=== PATIENT | female | born 1965 | race Caucasian/White ===

== ENCOUNTER 2016-08-09 19:17 | Inpatient (IN) | payer OTHER ==
[~2016-08-09] VITALS: Ht 167.6 cm; Wt 60.7 kg
[2016-08-09 19:20] VITALS: BP 123/78; PULSE 110; RESP 16; TEMP 98.3; O2SAT 98
[2016-08-09] MEDS ORDERED: LORazepam 2 MG/ML VIAL IM ONE (23:15)
[2016-08-09] MEDS ORDERED: HALOPERIDOL LACTATE 5 MG/ML AMP IM ONE (23:15)
[2016-08-09] MEDS ORDERED: diphenhydrAMINE HCL 50 MG/ML VIAL IM ONE (23:15)
[2016-08-09 23:30] LABS: MEAN CORPUSCULAR HGB CONC 36.2 % (32.0-36.0)
--- NOTE | 2016-08-10 00:47 | PD ---
HPI Chief Complaint: Psychiatric Symptoms Time Seen by Provider: 00:44 Travel History International Travel<30 days: No Contact w/Intl Traveler<30days: No Traveled to known affect area: No History of Present Illness HPI 51-year-old white female presents to emergency department and a manic psychotic state. Dr. Dangelo medicated the patient with Haldol 5 mg, Ativan 2 mg, and 50 mg of Benadryl IM. She has written a Johansen act on this patient. The patient here still is somewhat manic. She is hard to follow. She is unable to give any meaningful history at this time. [facility]LY [facility] Past Medical History Narrative Medical Medical record indicates a history of bipolar disorder Bipolar Disorder: Yes Schizophrenia: Yes Tetanus Vaccination: Unknown Influenza Vaccination: No ?: Not Past Surgical History Surgical History: No Previous Surgery Social History Alcohol Use: Yes (OCC) Tobacco Use: Yes (1PPD) Substance Use: No Allergies-Medications (Allergen,Severity, Reaction): Coded Allergies: No Known Allergies (Unverified , 08/09/16) Reported Meds & Prescriptions Reported Meds & Active Scripts Active No Active Prescriptions or Reported Medications Review of Systems ROS Limitations: Psychotic Physical Exam Narrative GENERAL: Well-nourished, well-developed patient. SKIN: Warm and dry. HEAD: Normocephalic and atraumatic. EYES: No scleral icterus. No injection or drainage. ENT: No nasal drainage noted. Mucous membranes pink. Airway patent. NECK: Supple, trachea midline. Moves head freely without obvious discomfort. CARDIOVASCULAR: Regular rate and rhythm without murmurs, gallops, or rubs. RESPIRATORY: Breath sounds equal bilaterally. No accessory muscle use. GASTROINTESTINAL: Abdomen soft, non-tender, nondistended. EXTREMITIES: No cyanosis or edema. BACK: Nontender without obvious deformity. No CVA tenderness. NEURO: Patient is alert and oriented. no sensorimotor deficits. Nonfocal. Normal speech. PSYCH: Patient is acutely psychotic and manic Data Data Last Documented VS Vital Signs Date Time Temp Pulse Resp B/P Pulse Ox O2 Delivery O2 Flow Rate FiO2 08/09/16 21:04 18 08/09/16 19:20 98.3 110 123/78 98 Orders Haloperidol Inj (Haldol Inj) (08/09/16 23:15) Lorazepam Inj (Ativan Inj) (08/09/16 23:15) Diphenhydramine Inj (Benadryl Inj) (08/09/16 23:15) Complete Blood Count With Diff (08/09/16 23:29) Comprehensive Metabolic Panel (08/09/16 23:29) Thyroid Stimulating Hormone (08/09/16 23:29) Psych Screen (08/09/16 23:29) Drug Screen, Random Urine (08/09/16 23:29) Alcohol (Ethanol) (08/09/16 23:29) Salicylates (Aspirin) (08/09/16 23:29) Tylenol (Acetaminophen) (08/09/16 23:29) Diet Regular Basic (08/10/16 Breakfast) MDM Medical Decision Making Medical Screen Exam Complete: Yes Emergency Medical Condition: Yes Medical Record Reviewed: Yes Differential Diagnosis MDM: High Differential diagnoses: Schizophrenia, schizoaffective disorder, bipolar, anxiety, depression, adjustment reaction, mood disorder NOS, ODD, depressive disorder NOS, dementia, dementia with agitation, psychosis NOS, substance induced mood disorder, intermittent explosive disorder, Asperger syndrome, infection,electrolyte abnormality, malingering. Narrative Course Mental health screening discussed with the patient. Psychiatric screen ordered. The patient has been medically cleared. She had been given Haldol 5 mg, Ativan 2 mg, and 50 g of Benadryl IM. This is bipolar-manic phase with psychotic features Diagnosis Primary Impression: bipolar-manic phase with psychotic features Scripts No Active Prescriptions or Reported Meds Condition: Tayo Herrera Aug 10, 2016 00:47
[2016-08-10 02:00] VITALS: BP 125/78; PULSE 91; RESP 17; O2SAT 100
[2016-08-10 06:06] VITALS: BP 126/80; PULSE 90; RESP 19; O2SAT 99
[2016-08-10 06:18] LABS: AUTOMATED NEUTROPHIL # 5.3 TH/MM3 (1.8-7.7); BASOPHIL # 0.1 TH/MM3 (0-0.2); EOSINOPHIL % 0.2 % (0.0-4.0); HEMATOCRIT 37.4 % (35.0-46.0); LYMPH % 30.3 % (9.0-44.0); LYMPHOCYTE # 2.6 TH/MM3 (1.0-4.8); MEAN CELL VOLUME 94.4 FL (80.0-100.0); MEAN CORPUSCULAR HEMOGLOBIN 34.2 PG (27.0-34.0); MONO % 7.3 % (0.0-8.0); NEUT % 61.2 % (16.0-70.0); PLATELET COUNT 233 TH/MM3 (150-450); RED BLOOD COUNT 3.96 MIL/MM3 (4.00-5.30); WHITE BLOOD COUNT 8.7 TH/MM3 (4.0-11.0)
[2016-08-10 06:22] LABS: HEMO FLAGS AUTO DIFF
[2016-08-10 06:36] LABS: AMPHETAMINE, URINE NEG (NEG); BARBITURATES, URINE NEG (NEG); COCAINE, URINE NEG (NEG)
[2016-08-10 06:44] LABS: ALT (GPT) 27 U/L (10-53); ANION GAP 10 MEQ/L (5-15); AST (GOT) 27 U/L (15-37); BICARBONATE 22.1 MEQ/L (21.0-32.0); BLOOD UREA NITROGEN 6 MG/DL (7-18); CHLORIDE 109 MEQ/L (98-107); GLOMERULAR FILTRATION RATE 93 ML/MIN (>89); POTASSIUM 3.7 MEQ/L (3.5-5.1); SODIUM (NA) 141 MEQ/L (136-145)
[2016-08-10 06:54] LABS: ACETAMINOPHEN LESS THAN 2.0 MCG/ML (10.0-30.0); ALKALINE PHOSPHATASE 57 U/L (45-117); TOTAL BILIRUBIN ADULT 0.5 MG/DL (0.2-1.0)
[2016-08-10 07:09] LABS: SCAN/DIFF AUTO DIFF CONFIRMED
--- NOTE | 2016-08-10 07:38 | HHI.HP ---
Provisional Diagnosis Admission Date 08/10/2016 [place] I. 1. Bipolar disorder, currently mixed severe with psychotic features [place] II. Deferred [place] V. GAF is 30 presently Certification of Person's Competence To Provide Express and Informed Consent I have personally examined Dawn Chowdhury , a person being served at [facility] on, Aug 10, 2016 07:38. Express and informed consent means consent voluntarily given in writing, by a competent person, after sufficient explanation and disclosure of the subject matter involved to enable the person to make a knowing and willful decision without any element of force, fraud, deceit, duress, or other form of constraint or coercion. This person is 18 years of age or older, is not now known to be incompetent to consent to treatment with a guardian advocate, and does not have a health care surrogate or proxy currently making medical treatment decisions. I have found this person to be one of the following: [] Competent to provide express and informed consent, as defined above, for voluntary admission to this facility and is competent to provide express and informed consent for treatment. He/she has the consistent capacity to make well reasoned, willful, and knowing decisions concerning his or her medical or mental health treatment. The person fully and consistently understands the purpose of the admission for examination/placement and is fully capable of personally exercising all rights assured [place] [x] Incompetent to provide express and informed consent to voluntary admission, and this is incompetent to provide express and informed consent to treatment. The person must be transferred to involuntary status and a petition for a guardian advocate filed with the Circuit Court. [] Refusing to provide express and informed consent to voluntary admission but is competent to provide express and informed consent for treatment. The person must be discharged or transferred to involuntary status. Form shall be completed within 24 hours of a person's arrival at the receiving facility and filed in the clinical record of each person: 1. Admitted on a voluntary basis 2. Permitted to provide express and informed consent to his/her own treatment 3. Allowed to transfer from involuntary to voluntary status 4. Prior to permitting a person to consent to his or her own treatment after having been previously found incompetent to consent to treatment. History of Present Illness Capacity: Lacks Capacity HPI Ms. Chowdhury is a 51-year-old female of uncertain past psychiatric history who was dropped off by a friend to the ED. The patient was evaluated by the ED provider who placed the patient under the Johansen act. She was transferred to the [facility] where she has been agitated and required ETO medications. Reviewing the electronic medical record, I note this is patient's first visit to [facility]. Patient seen and examined. Chart reviewed. Case discussed with nursing staff and the [facility]. Patient remains quite intrusive and easily agitated on my examination today. Her speech is pressured and she is hyperverbal generally. She give unnecessary detail, such as listing the addresses of places where she has been. Her thought process is disorganized with significant loosening of associations. She says, "my father but his info is extremely top secret and sensitive." She later says that she has been seeing "crap falling from the street into peoples' distance--that doesn't make sense--just [address], how people drive." She denies SI/HI but seems decidedly unreliable to contract for safety in her present state. She denies AVH but appears internally preoccupied. The interview is somewhat limited because of her degree of psychiatric decompensation. Past psychiatric history: Patient is quite guarded on this point. She does endorse a history of psychiatric admissions but denies a history of suicide attempts. She refuses to provide any further details. Family history: Patient reports that possibly her 2 younger sisters have some sort of mental illness. Chemical dependency history: "No, but maybe they should invent some [drugs] for me." Social history: Patient is urgently for [place]. She is but has no children. She does have several pet dogs and cats. 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 She denies any or legal history. She does say there are some guns in the home. Given patient's degree of psychiatric impairment I have endeavored on 3 separate occasions to reach patient's whose numbers listed in the EMR. I have been unable to make contact with him. The patient is unwilling to provide me with any other sources of collateral, and so collateral is presently wanting. Review of Systems ROS Limitations: Uncooperative, Psychotic, Poor Historian Other No reported physical complaints today. Past Psych History Psychological trauma history Unable to obtain from patient. Uncooperative. Violence risk - others (6 mos) Concerned that this is elevated. Patient is easily agitated. Violence risk - self (6 mos) Indeterminate. Substance Abuse History Drugs/Alcohol past 12 months See above Past Family Social History Coded Allergies: No Known Allergies (Unverified , 08/09/16) Past Medical History Patient denies any medical history but is likely an unreliable historian. TSH was slightly elevated. No Active Prescriptions or Reported Meds Family History See above Social History See above Patient's Strengths (min. 2) In a monitored setting. Verbally fluent. Physical Exam Physical examination completed by ED provider. On my examination today, patient is in no acute physical distress. She is well-nourished and well- developed. No motoric abnormalities noted. Steady gait and station. Labs and vital signs reviewed. Vital Signs Vital Signs Date Time Temp Pulse Resp B/P Pulse Ox O2 Delivery O2 Flow Rate FiO2 08/10/16 06:06 90 19 126/80 99 Room Air 08/09/16 19:20 98.3 Lab Results Item Value Date Time Sodium Level 141 MEQ/L 08/10/16 0550 Potassium Level 3.7 MEQ/L 08/10/16 0550 Chloride Level 109 MEQ/L H 08/10/16 0550 Carbon Dioxide Level 22.1 MEQ/L 08/10/16 0550 Blood Urea Nitrogen 6 MG/DL L 08/10/16 0550 Creatinine 0.67 MG/DL 08/10/16 0550 Aspartate Amino Transf (AST/SGOT) 27 U/L 08/10/16 0550 Alanine Aminotransferase (ALT/SGPT) 27 U/L 08/10/16 0550 Alkaline Phosphatase 57 U/L 08/10/16 0550 Thyroid Stimulating Hormone 3rd Gen 5.590 uIU/ML H 08/10/16 0550 White Blood Count 8.7 TH/MM3 08/10/16 0550 Hemoglobin 13.5 GM/DL 08/10/16 0550 Platelet Count 233 TH/MM3 08/10/16 0550 Urine Opiates Screen NEG 08/10/16 0550 Urine Barbiturates Screen NEG 08/10/16 0550 Urine Amphetamines Screen NEG 08/10/16 0550 Urine Benzodiazepines Screen NEG 08/10/16 0550 Urine Cocaine Screen NEG 08/10/16 0550 Urine Cannabinoids Screen NEG 08/10/16 0550 Ethyl Alcohol Level LESS THAN 3 MG/DL 08/10/16 0550 Mental Status Examination Patient is very smartly dressed in a suit, but this is somewhat rumpled, giving her overall a fairly disheveled look. She is awake and alert and knows who she is and that she is in the hospital. Mental status testing is somewhat limited due to lack of cooperation. No motoric abnormalities noted. Speech is pressured and rambling. Language and fund of knowledge are difficult to assess but seem at least average. Mood is fairly dysphoric and affect is restricted and consistent with stated mood. Thought process scattered with significant loosening of associations. Some paranoia is present. Patient seems to describe some sort of visual phenomena to do with the road, but it is unclear. She denies suicidal or homicidal ideation but seems unreliable to contract for safety. Insight and judgment are presently poor. Assessment & Plan Problem List: (1) Bipolar disorder ICD Code: F31.9 Assessment & Plan This is a 51-year-old female of uncertain past psychiatric history as detailed above who was apparently dropped off by friends who reported that she had a history of mental illness and had been off of medications. She was placed under a Johansen act by the ED physician. On my examination today, the form of patient's illness is a severe mixed-manic episode with psychotic features. My suspicion is that she has a bipolar disorder. Her TSH is slightly elevated but I do not suspect that this is contributing to her current presentation to any significant degree. Collateral is presently lacking. Patient requires psychiatric hospitalization at this time for safety, observation and stabilization. Admit inpatient. Involuntary status. I have completed first opinion. Consult for second opinion. Request healthcare surrogate and guardian advocate. Check hemoglobin A1c, lipid panel and repeat thyroid function tests in the morning. We will need a healthcare surrogate to provide consent for psychotropic medications, and I would like to know more about her history before recommending one. For the time being, I will order Ativan as needed for anxiety , Benadryl as needed for sleep and Cogentin as needed for EPS. Vitals every shift. Counselor to see. Disposition planning. Estimated length of stay: 7-9 days, longer if we have to wait for Court next to get a guardian advocate. Discharge Planning Pending psychiatric stabilization Request HC Surrog/Guard Advoc?: Yes Problem Qualifiers (1) Bipolar disorder: Qualified Code: F31.64 - Bipolar disorder, current episode mixed, severe, with psychotic features Chaiffetz,Vincenzo B. MD Aug 10, 2016 07:38
[2016-08-10] MEDS ORDERED: BENZTROPINE MESYLATE 2 MG/2 ML VIAL IM PRN (07:45)
[2016-08-10] MEDS ORDERED: LORazepam 2 MG/ML VIAL IM PRN (07:45)
[2016-08-10] MEDS ORDERED: MAGNESIUM HYDROXIDE SUSP 30 ML CUP PO PRN (07:45)
[2016-08-10] MEDS ORDERED: BENZTROPINE MESYLATE 1 MG TAB PO PRN (07:45)
[2016-08-10] MEDS ORDERED: ALUMINUM/MAGNESIUM/SIMETH 30 ML CUP PO PRN (07:45)
[2016-08-10] MEDS: NICOTINE 21 MG/24 HR PATCH T-DERMAL SCH (09:00)
[2016-08-10] MEDS: REMOVE OLD PATCH T-DERMAL SCH (09:00)
[2016-08-10 10:26] VITALS: BP 121/60; PULSE 92; RESP 18; O2SAT 99
[2016-08-10 15:18] VITALS: BP 121/60; PULSE 92; RESP 18; O2SAT 99
[2016-08-10 16:25] VITALS: BP 141/71; PULSE 94; RESP 16; TEMP 98.3; O2SAT 96
[2016-08-10 20:04] VITALS: BP 120/60; PULSE 88; RESP 16; TEMP 98; O2SAT 97
[2016-08-10] MEDS: LORazepam 1 MG TAB PO PRN (21:45)
[2016-08-10] MEDS: diphenhydrAMINE HCL 50 MG CAP PO PRN (21:45)
[2016-08-11 05:54] VITALS: BP 107/63; PULSE 90; RESP 17; TEMP 97.9; O2SAT 97
--- NOTE | 2016-08-11 08:12 | PD.CONS ---
Provisional Diagnosis Admission Date Aug 10, 2016 at 07:37 [place] I. 1. Bipolar disorder, currently mixed severe with psychotic features [place] II. Deferred [place] V. GAF is 30 presently History of Present Illness Service Psychiatry Consult Requested By Primary Care Physician Non-Staff HPI Ms. Chowdhury is a 51-year-old female of uncertain past psychiatric history who was dropped off by a friend to the ED. The patient was evaluated by the ED provider who placed the patient under the Johansen act. She was transferred to the [facility] where she has been agitated and required ETO medications. Reviewing the electronic medical record, I note this is patient's first visit to [facility]. Patient seen and examined. Chart reviewed. Case discussed with nursing staff and the [facility]. Patient remains quite intrusive and easily agitated on my examination today. Her speech is pressured and she is hyperverbal generally. She give unnecessary detail, such as listing the addresses of places where she has been. Her thought process is disorganized with significant loosening of associations. She says, "my father but his info is extremely top secret and sensitive." She later says that she has been seeing "crap falling from the street into peoples' distance--that doesn't make sense--just [address], how people drive." She denies SI/HI but seems decidedly unreliable to contract for safety in her present state. She denies AVH but appears internally preoccupied. The interview is somewhat limited because of her degree of psychiatric decompensation. Past psychiatric history: Patient is quite guarded on this point. She does endorse a history of psychiatric admissions but denies a history of suicide attempts. She refuses to provide any further details. Family history: Patient reports that possibly her 2 younger sisters have some sort of mental illness. Chemical dependency history: "No, but maybe they should invent some [drugs] for me." Social history: Patient is urgently for [place]. She is but has no children. She does have several pet dogs and cats. 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 She denies any or legal history. She does say there are some guns in the home. Given patient's degree of psychiatric impairment I have endeavored on 3 separate occasions to reach patient's whose numbers listed in the EMR. I have been unable to make contact with him. The patient is unwilling to provide me with any other sources of collateral, and so collateral is presently wanting. 08/11/16 Above note dictated by Dr. Medina noted reviewed and agreed with. Patient is a 51-year-old white female admitted to Dr. Medina service under the Johansen act. Patient seen by me in brush with floor staff, patient is manic with rapid pressured speech intrusiveness showing no insight into her disease somewhat aggressive and profane towards staff. Allergies the patient indicated ETO of Haldol Benadryl and Ativan in the ED to maintain control. Dr. Medina #first opinion petition supporting Johansen act. I agree. Patient meets criteria for involuntary psychiatric hospitalization under the Johansen act. Thus I will cosign second opinion petition supporting Johansen act Past Family Social History Coded Allergies: No Known Allergies (Unverified , 08/09/16) No Active Prescriptions or Reported Meds Current Medications Medications (Trade) Dose Ordered Sig/Prabha Route Start Time Stop Time Status Last Admin (Ativan) 1 mg Q6H PRN PO 08/10/16 07:45 08/10/16 21:45 (Ativan Inj) 1 mg Q6H PRN IM 08/10/16 07:45 (Benadryl) 50 mg HS PRN PO 08/10/16 07:45 08/10/16 21:45 (Tylenol) 650 mg Q4H PRN PO 08/10/16 07:45 (Milk Of Magnesia Liq) 30 ml DAILY PRN PO 08/10/16 07:45 (Mag-Al Plus Susp Liq) 30 ml Q6H PRN PO 08/10/16 07:45 (Habitrol 21 Mg Patch.24 Hr) 1 patch DAILY T-DERMAL 08/10/16 09:00 (Cogentin) 1 mg Q12H PRN PO 08/10/16 07:45 (Cogentin Inj) 1 mg Q12H PRN IM 08/10/16 07:45 Miscellaneous Information 1 DAILY T-DERMAL 08/10/16 09:00 08/10/16 09:00 Patient's Strengths (min. 2) In a monitored setting. Verbally fluent. Physical Exam Vital Signs Vital Signs Date Time Temp Pulse Resp B/P Pulse Ox O2 Delivery O2 Flow Rate FiO2 08/11/16 05:54 97.9 90 17 107/63 97 2/15/17 15:18 Room Air I/O 08/10/16 08/10/16 08/11/16 08:00 16:00 00:00 Intake Total 500 ml Balance 500 ml Mental Status Examination Alert irritable anxious manic then slight white female appears her stated age with intense eye contact somewhat intrusive into my personal space Appearance Somewhat disheveled Speech: Pressured, Rapid, Tangential Orientation: Person, Place, Time, Date, Situation Memory: Unremarkable (confusing) Thought Process: Circumstantial, Tangential Thought Content: Paranoid Hallucination Type: None (denies voices or visions) Attention and Concentration: Easily Distracted Suicidal Ideation: No Previous Suicide Attempts: No Homicidal Ideation: No Previous Homicide Attempts: No Insight: Fair Judgement: Poor Affect: Other (decrease range and intensity) Mood: Angry, Irritable, Manic Motor Activity: Normal gait Assessment & Plan Problem List: (1) Bipolar disorder ICD Code: F31.9 Assessment & Plan Estimated LOS: days Request HC Surrog/Guard Advoc?: Yes Problem Qualifiers (1) Bipolar disorder: Qualified Code: F31.64 - Bipolar disorder, current episode mixed, severe, with psychotic features Matthew Valadez MD Aug 11, 2016 08:12
[2016-08-11] MEDS: REMOVE OLD PATCH T-DERMAL SCH (08:13)
[2016-08-11] MEDS: LORazepam 1 MG TAB PO PRN (08:14)
[2016-08-11] MEDS: ACETAMINOPHEN 325 MG TAB PO PRN (08:16)
[2016-08-11] MEDS: NICOTINE 21 MG/24 HR PATCH T-DERMAL SCH (08:28)
--- NOTE | 2016-08-11 12:12 | HHI.PYPN ---
Subjective Remarks Patient seen and examined. Chart reviewed. Case discussed with nursing staff. On my examination today, patient's speech is pressured and rambling. She continues to perseverate on minutia. Associations are loose. Paranoid ideation present. She is psychomotor agitated and bouncing on the balls of her feet. She does endorse a history of mental illness today but cannot describe this in any detail. Nursing staff was able to reach patient's but patient apparently kept her mental health history private, although he knew she had taken perphenazine in the past. Review of Systems ROS Limitations: Psychotic, Poor Historian Other No somatic complaints today Objective Alert: Yes [place]: Person, Place Mood: Anxious, Other (dysphoric) Affect: Restricted Memory Intact: Comment (Not formally assessed) Hallucinations: Other (Int stim) Delusions: Yes Delusion Type: Paranoid Suicidal: Ideation (No SI but unreliable to contract for safety) Homicidal: Ideation (no HI) Insight/Judgement Poor Remarks Loosening of associations present. Speech rambling and pressured. No abnormal motor movements noted but the patient is somewhat psychomotor agitated as I said. Labs Labs reviewed. Vitals/IOs Vital Signs Date Time Temp Pulse Resp B/P Pulse Ox O2 Delivery O2 Flow Rate FiO2 08/11/16 05:54 97.9 90 17 107/63 97 08/10/16 15:18 Room Air Intake and Output 08/10/16 08/10/16 08/11/16 08:00 16:00 00:00 Intake Total 500 ml Balance 500 ml Assessment & Plan Problem List: (1) Bipolar disorder ICD Code: F31.9 Assessment & Plan Initiate Depakote ER 20mg/kg ~= 1250mg qHS for mood stabilization and check a Depakote and ammonia level after the weekend. LFTs and platelets okay. Add Seroquel 50 mg twice daily for psychosis with plans to titrate. Continue to monitor for safety on the unit. Repeat TFTs and other labs ordered for tomorrow morning. Continue other medications and care as ordered. Justification for Cont. Inpt. Impairments in reality construction, social functioning. Medication changes in process. High risk for decompensation in a lower level of care. Discharge Planning Pending psychiatric stabilization. Request HC Surrog/Guard Advoc?: Yes Problem Qualifiers (1) Bipolar disorder: Qualified Code: F31.64 - Bipolar disorder, current episode mixed, severe, with psychotic features Vincenzo Meidna MD Aug 11, 2016 12:12
[2016-08-11 19:31] VITALS: BP 14/59; PULSE 77; RESP 16; TEMP 96.8; O2SAT 99
[2016-08-11] MEDS: QUEtiapine FUMARATE 25 MG TAB PO SCH (20:39)
[2016-08-11] MEDS: DIVALPROEX SODIUM E.R. 500 MG TAB PO SCH (20:39)
[2016-08-11] MEDS: DIVALPROEX SODIUM E.R. 250 MG TAB PO SCH (20:39)
[2016-08-11] MEDS: diphenhydrAMINE HCL 50 MG CAP PO PRN (21:00)
[2016-08-12 06:02] VITALS: BP 142/63; PULSE 130; RESP 16; TEMP 97.9
[2016-08-12] MEDS: QUEtiapine FUMARATE 25 MG TAB PO SCH (09:00)
--- NOTE | 2016-08-12 10:09 | HHI.PYPN ---
Subjective Remarks Patient seen and examined with counselor and nurse. Chart reviewed. Case discussed with nursing staff who reports patient is refusing laboratories and refused Seroquel this morning. On my examination today, patient presents as paranoid and oppositional. She does admit that she slept better overnight with the benefit of psychotropic medications but says that she has no intention of taking any more of them. She does not describe any side effects from medications but simply does not seem to want to take them. She is fairly irritable. Review of Systems ROS Limitations: Poor Historian Other No physical complaints today Objective Alert: Yes [place]: Person, Place Mood: Oppositional Affect: Restricted (dysphoric) Memory Intact: Comment (Not formally assessed) Hallucinations: Other (remains somewhat internally preoccupied) Delusions: Yes Delusion Type: Paranoid Suicidal: Ideation (no SI) Homicidal: Ideation (no HI) Insight/Judgement Poor Remarks Thought process more linear today. Speech remains a little pressured. No motoric abnormalities noted. Labs Refusing laboratories Vitals/IOs Vital Signs Date Time Temp Pulse Resp B/P Pulse Ox O2 Delivery O2 Flow Rate FiO2 08/12/16 06:02 97.9 130 16 142/63 08/11/16 19:31 99 08/10/16 15:18 Room Air Assessment & Plan Problem List: (1) Bipolar disorder ICD Code: F31.9 Assessment & Plan Given that patient states that she will decline further psychotropic medications , discontinue Seroquel and replace with Zyprexa by mouth with IM backup if she should refuse oral Zyprexa. Continue to offer Depakote as I do think she would benefit from a mood stabilizer. Continue other medications and care as ordered. Continue to try to obtain laboratories. Justification for Cont. Inpt. Impairments in reality construction. Medication changes in process. High risk for decompensation in a lower level of care. Discharge Planning Pending psychiatric stabilization Request HC Surrog/Guard Advoc?: Yes Problem Qualifiers (1) Bipolar disorder: Qualified Code: F31.64 - Bipolar disorder, current episode mixed, severe, with psychotic features Vincenzo Medina MD Aug 12, 2016 10:09
[2016-08-12] MEDS ORDERED: OLANZapine IM 10 MG VIAL IM PRN (13:00)
[2016-08-12 19:26] VITALS: BP 99/51; PULSE 80; RESP 18; TEMP 97.6; O2SAT 98
[2016-08-12] MEDS: OLANZapine ODT 10 MG TAB PO SCH (20:28)
[2016-08-12] MEDS: DIVALPROEX SODIUM E.R. 250 MG TAB PO SCH (20:28)
[2016-08-12] MEDS: DIVALPROEX SODIUM E.R. 500 MG TAB PO SCH (20:28)
[2016-08-13 06:20] VITALS: BP 129/62; PULSE 85; RESP 18; TEMP 97.8; O2SAT 98
[2016-08-13 12:30] LABS: FREE T4 1.39 NG/DL (0.76-1.46); HDL CHOLESTEROL 85.4 MG/DL (40.0-60.0); LDL CHOLESTEROL 55 MG/DL (0-99)
[2016-08-13 12:40] LABS: HEMOGLOBIN A1a 1.3 %; HEMOGLOBIN A1b 0.7 %; HEMOGLOBIN Ao 86.9 %; HEMOGLOBIN F 1.1 %; HEMOGLOBIN LA1C 1.8 %; HEMOGLOBIN P3 3.1 %
--- NOTE | 2016-08-13 12:59 | HHI.PYPN ---
Subjective Remarks Pt seen and discussed with staff. Pt reports that sleep is improved and she is tolerating medication without side effects. Thought process is still somewhat loose and tangential and pt remains paranoid. No SI/HI. "I've been writing out my plans but I just have so many ideas that everything keeps expanding and growing!" Objective Alert: Yes [place]: Person, Place Mood: Other (manic) Affect: Other (euphoric) Memory Intact: Comment (Not formally assessed) Hallucinations: Other (remains somewhat internally preoccupied) Delusions: Yes Delusion Type: Paranoid Suicidal: Ideation (no SI) Homicidal: Ideation (no HI) Insight/Judgement poor Labs Test 08/13/16 11:39 Triglycerides Level 89 MG/DL Cholesterol Level 158 MG/DL LDL Cholesterol 55 MG/DL HDL Cholesterol 85.4 MG/DL Cholesterol/HDL Ratio 1.85 RATIO Free Thyroxine 1.39 NG/DL Thyroid Stimulating Hormone 0.449 uIU/ML 3rd Gen Vitals/IOs Vital Signs Date Time Temp Pulse Resp B/P Pulse Ox O2 Delivery O2 Flow Rate FiO2 08/13/16 06:20 97.8 85 18 129/62 98 08/10/16 15:18 Room Air Assessment & Plan Problem List: (1) Bipolar disorder ICD Code: F31.9 Assessment & Plan Continue current tx plan. Estimated LOS: days Justification for Cont. Inpt. impairments in reality construction and social functioning Request HC Surrog/Guard Advoc?: Yes Problem Qualifiers (1) Bipolar disorder: Qualified Code: F31.64 - Bipolar disorder, current episode mixed, severe, with psychotic features Allegra Díaz MD Aug 13, 2016 12:59
[2016-08-13 20:07] VITALS: BP 132/60; PULSE 76; RESP 18; TEMP 98.1; O2SAT 100
[2016-08-13] MEDS: OLANZapine ODT 10 MG TAB PO SCH (20:27)
[2016-08-13] MEDS: DIVALPROEX SODIUM E.R. 500 MG TAB PO SCH (20:27)
[2016-08-13] MEDS: DIVALPROEX SODIUM E.R. 250 MG TAB PO SCH (20:27)
[2016-08-14 06:23] VITALS: BP 108/53; PULSE 67; RESP 16; TEMP 98.3; O2SAT 100
--- NOTE | 2016-08-14 14:15 | HHI.PYPN ---
Subjective Remarks Pt seen and discussed with staff. She remains manic, but thought process is a little more organized today. She continues to express paranoid ideations. Compliant with medications and denies side effects. No agitation. No SI/HI Objective Alert: Yes [place]: Person, Place Mood: Other (manic) Affect: Other (euphoric) Memory Intact: Comment (Not formally assessed) Hallucinations: Other (remains somewhat internally preoccupied) Delusions: Yes Delusion Type: Paranoid Suicidal: Ideation (no SI) Homicidal: Ideation (no HI) Insight/Judgement limited Vitals/IOs Vital Signs Date Time Temp Pulse Resp B/P Pulse Ox O2 Delivery O2 Flow Rate FiO2 08/14/16 06:23 98.3 67 16 108/53 100 08/10/16 15:18 Room Air Assessment & Plan Problem List: (1) Bipolar disorder ICD Code: F31.9 Assessment & Plan Continue current tx plan. Estimated LOS: days Justification for Cont. Inpt. impairments in social functioning and reality construction Request HC Surrog/Guard Advoc?: Yes Problem Qualifiers (1) Bipolar disorder: Qualified Code: F31.64 - Bipolar disorder, current episode mixed, severe, with psychotic features Allegra Díaz MD Aug 14, 2016 14:15
[2016-08-14] MEDS: ACETAMINOPHEN 325 MG TAB PO PRN (16:09)
[2016-08-14 18:00] VITALS: BP 104/59; PULSE 71; RESP 16; TEMP 98.2; O2SAT 100
[2016-08-14] MEDS: OLANZapine ODT 10 MG TAB PO SCH (20:46)
[2016-08-14] MEDS: DIVALPROEX SODIUM E.R. 500 MG TAB PO SCH ×2 (20:46→20:50)
[2016-08-14] MEDS: DIVALPROEX SODIUM E.R. 250 MG TAB PO SCH (20:46)
[2016-08-15 06:21] VITALS: BP 119/66; PULSE 102; RESP 18; TEMP 98.6; O2SAT 97
--- NOTE | 2016-08-15 11:08 | HHI.PYPN ---
Subjective Remarks Patient seen and examined with counselor. Chart reviewed. Case discussed with nursing staff who reports patient refused her Depakote last night. Reviewing the medication administration record, it appears patient refused the larger 1000 mg component but did accept the 250 mg component. On my examination today , patient continues to display some loosening of associations and pressured speech. She says "I have some much on my mind." She says that she feels overwhelmed. She wants to return to perphenazine, noting that she had gotten herself down to a dose of 8 mg at bedtime before discontinuing it entirely because "I felt fine and wonderful" but eventually decided she didn't need it anymore. Denies side effects from psychotropics but doesn't want to be on Zyprexa because she is concerned that it will elevate her triglycerides. Review of Systems ROS Limitations: Poor Historian Other No physical complaints today Objective Alert: Yes [place]: Person, Place Mood: Other ("overwhelmed") Affect: Restricted (dysphoric) Memory Intact: Comment (Not formally assessed) Hallucinations: Other (no AVH) Delusions: Yes Delusion Type: Paranoid Suicidal: Ideation (no SI) Homicidal: Ideation (no HI) Insight/Judgement Poor Remarks Thought process with some ongoing loosening of associations. Speech slightly pressured. No motoric abnormalities noted. Labs Labs reviewed. No new labs. Vitals/IOs Vital Signs Date Time Temp Pulse Resp B/P Pulse Ox O2 Delivery O2 Flow Rate FiO2 08/15/16 06:21 98.6 102 18 119/66 97 Assessment & Plan Problem List: (1) Bipolar disorder ICD Code: F31.9 Assessment & Plan Definitely a trajectory towards improvement with current psychotropic regimen. Pictures somewhat muddled because patient did decline her Depakote last night. Perphenazine does not have an indication for bipolar disorder, and the patient really does seem to be benefiting from the Zyprexa. Her triglycerides are presently fine. I will proceed in the following way: I will titrate her Zyprexa by mouth for further mood stabilization this evening. If the patient continues to refuse her Depakote, we could consider augmenting the Zyprexa with her desired perphenazine instead of the Depakote, although she herself had said that perphenazine was too costly to take on a long-term basis. Continue other medications and care as ordered. Justification for Cont. Inpt. Impairment in reality construction. High risk for decompensation in a lower level of care. Discharge Planning Pending psychiatric stabilization. Request HC Surrog/Guard Advoc?: Yes Problem Qualifiers (1) Bipolar disorder: Qualified Code: F31.64 - Bipolar disorder, current episode mixed, severe, with psychotic features Vincenzo Medina MD Aug 15, 2016 11:08
[2016-08-15] MEDS: ACETAMINOPHEN 325 MG TAB PO PRN (16:30)
[2016-08-15 18:00] VITALS: BP 108/52; PULSE 68; RESP 18; TEMP 98.1; O2SAT 100
[2016-08-15] MEDS: DIVALPROEX SODIUM E.R. 500 MG TAB PO SCH (21:00)
[2016-08-15] MEDS ORDERED: OLANZapine ODT 15 MG TAB PO SCH (21:00)
[2016-08-15] MEDS: DIVALPROEX SODIUM E.R. 250 MG TAB PO SCH (21:00)
[2016-08-16 05:58] VITALS: BP 111/97; PULSE 76; RESP 17; TEMP 97.4; O2SAT 99
[2016-08-16] MEDS: ACETAMINOPHEN 325 MG TAB PO PRN (09:11)
--- NOTE | 2016-08-16 12:34 | HHI.PYPN ---
Subjective Remarks Patient seen and examined with counselor and nursing staff in treatment team. Chart reviewed. Case discussed with counselor, nursing staff and occupational therapist. Per nursing staff, the patient did fairly well overnight but refused laboratories. She also refused her Depakote. On my examination today, the patient is quite discharge focused. She denies any SI, HI or AVH. She is fairly irritable and distractible though with loosening of associations, suggesting to me some degree of ongoing mixed state. I endeavor to engage her in a discussion about this ongoing symptomatology with the goal of improving insight and as a segue towards a discussion about medications, but the patient becomes increasingly irritable and intransigent and dictating of care and finally shuts down, effectively ending interview. Denies side effects from the Zyprexa. Review of Systems ROS Limitations: Uncooperative Other No physical complaints voiced today Objective Alert: Yes [place]: Person, Place Mood: Other (irritable) Affect: Restricted (dysphoric) Memory Intact: Comment (Not formally assessed) Hallucinations: Other (no AVH) Delusions: No Delusion Type: Other (no delusions) Suicidal: Ideation (denies suicidal ideation) Homicidal: Ideation (denies homicidal ideation) Insight/Judgement Poor Remarks Thought process with some ongoing loosening of associations. Speech is overinclusive still. No motoric abnormalities noted. Labs Labs reviewed. Patient refused labs as noted above. Vitals/IOs Vital Signs Date Time Temp Pulse Resp B/P Pulse Ox O2 Delivery O2 Flow Rate FiO2 08/16/16 05:58 97.4 76 17 111/97 99 Assessment & Plan Problem List: (1) Bipolar disorder ICD Code: F31.9 Assessment & Plan We are definitely seeing some improvement with the Zyprexa, and I think it is worth titrating this agent for additional mood stabilization. Patient is not requesting the perphenazine today and since this does not have an indication for bipolar disorder and since it would introduce unnecessary polypharmacy at this point, I will prefer instead to titrate the Zyprexa as I said. I will go ahead and discontinue the Depakote as it appears the patient will not take this medication. I had hoped to begin a discussion about discharge planning today but the patient remains symptomatic. It is my hope that she will be improved tomorrow with medication adjustment. Continue other medications and care as ordered. Justification for Cont. Inpt. Impairment in social function. Medication changes. High risk for decompensation pending psychiatric stabilization. Discharge Planning Pending psychiatric stabilization. Request HC Surrog/Guard Advoc?: Yes Problem Qualifiers (1) Bipolar disorder: Qualified Code: F31.64 - Bipolar disorder, current episode mixed, severe, with psychotic features Vincenzo Medina MD Aug 16, 2016 12:34
[2016-08-16 20:10] VITALS: BP 105/57; PULSE 70; RESP 18; TEMP 98; O2SAT 100
[2016-08-16] MEDS ORDERED: OLANZapine ODT 15 MG TAB PO SCH (21:00)
[2016-08-16] MEDS: LORazepam 1 MG TAB PO PRN (21:23)
[2016-08-17 06:04] VITALS: BP 131/58; PULSE 67; RESP 16; TEMP 98; O2SAT 97
[2016-08-17] MEDS: ACETAMINOPHEN 325 MG TAB PO PRN (12:04)
[2016-08-17] MEDS ORDERED: ZYPR20TA PO (12:36)
--- NOTE | 2016-08-17 12:46 | HHI.DS ---
Psychiatry Discharge Summary Inpatient Psychiatric care?: Yes Advance Directive: No Reason Not Provided: HAS NONE Mental Health AdvanceDirective: No Health Care Proxy: No Admission Admission Date Aug 10, 2016 at 07:37 Admission Diagnosis: (1) Bipolar disorder ICD Code: F31.9 Brief History Ms. Chowdhury is a 51-year-old female of uncertain past psychiatric history who was dropped off by a friend to the ED. The patient was evaluated by the ED provider who placed the patient under the Johansen act. She was transferred to the [facility] where she has been agitated and required ETO medications. Reviewing the electronic medical record, I note this is patient's first visit to [place]. Patient seen and examined. Chart reviewed. Case discussed with nursing staff and the [facility]. Patient remains quite intrusive and easily agitated on my examination today. Her speech is pressured and she is hyperverbal generally. She give unnecessary detail, such as listing the addresses of places where she has been. Her thought process is disorganized with significant loosening of associations. She says, "my father but his info is extremely top secret and sensitive." She later says that she has been seeing "crap falling from the street into peoples' distance--that doesn't make sense--just [address], how people drive." She denies SI/HI but seems decidedly unreliable to contract for safety in her present state. She denies AVH but appears internally preoccupied. The interview is somewhat limited because of her degree of psychiatric decompensation. Past psychiatric history: Patient is quite guarded on this point. She does endorse a history of psychiatric admissions but denies a history of suicide attempts. She refuses to provide any further details. Family history: Patient reports that possibly her 2 younger sisters have some sort of mental illness. Chemical dependency history: "No, but maybe they should invent some [drugs] for me." Social history: Patient is urgently for [place]. She is but has no children. She does have several pet dogs and cats. 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 She denies any or legal history. She does say there are some guns in the home. Given patient's degree of psychiatric impairment I have endeavored on 3 separate occasions to reach patient's whose numbers listed in the EMR. I have been unable to make contact with him. The patient is unwilling to provide me with any other sources of collateral, and so collateral is presently wanting. 08/11/16 Above note dictated by Dr. Medina noted reviewed and agreed with. Patient is a 51-year-old white female admitted to Dr. Medina service under the Johansen act. Patient seen by me in brush with floor staff, patient is manic with rapid pressured speech intrusiveness showing no insight into her disease somewhat aggressive and profane towards staff. Allergies the patient indicated ETO of Haldol Benadryl and Ativan in the ED to maintain control. Dr. Medina #first opinion petition supporting Johansen act. I agree. Patient meets criteria for involuntary psychiatric hospitalization under the Johansen act. Thus I will cosign second opinion petition supporting Johansen act Tobacco Use In Past 30 Days: 5 or More Cigarettes/Day Alcohol Use: 2-4 Times Per Month Hospital Course Patient was admitted to a locked, inpatient psychiatric unit. Appropriate precautions were in place throughout patient's hospital stay. Patient was seen and examined daily on the unit by psychiatry and also visited by counselor. Medications were adjusted. Patient declined Depakote but did accept Zyprexa and tolerated this medication well without side effects. Patient had some improvement in her presenting psychiatric symptomatology during the course of her hospital stay. Her mood stabilized somewhat. There was no evidence of any suicidality or homicidality on the inpatient unit. Patient remained in fairly good behavioral control and was compliant with the Zyprexa by mouth. Charting indicates that she is sleeping and eating well. On the day of discharge: Patient seen and examined. Chart reviewed. Case discussed with nursing staff who reports they note some interval improvement in patient's mood. On my examination today, the patient reports that she feels like she is doing "really good." She has organized a lengthy list of activities that she plans to pursue after she is discharged. She is requesting discharge from the inpatient psychiatric unit today. She is somewhat calmer and her mood is more stable today versus yesterday and I am able to engage with her in a more meaningful discussion of her current symptomatology and discharge planning. She feels like her "thoughts are collected." She denies any suicidal or homicidal ideation. She denies any audiovisual hallucinations and I can elicit no delusional beliefs. She does remain somewhat irritable and distractible and her speech remains somewhat pressured but there is a definite improvement versus admission. She denies side effects from medications. She agrees to take the Zyprexa on discharge and follow-up on an outpatient basis with psychiatry. She has no physical complaints. With the patient's permission I have obtained collateral from patient's , Aristeo over the phone. He feels that she is much improved versus admission and has no safety concerns about her being a risk of harm to herself or others. Aristeo agrees to monitor medication administration, secure the home of all potential means of harm to self or others , and bring the patient back to the ED at the first sign of any trouble. I have weighed the acute, chronic, and protective factors and based on the available evidence, I can no longer in good john maintain that the patient meets criteria for involuntary psychiatric hospitalization at this time. However, I do not believe that the patient is completely psychiatrically stable. I have strongly recommended to patient that she remain on the inpatient psychiatric unit for additional stabilization and have made the same recommendation to her , but both wish to have the patient return home today. Given that she no longer meets criteria for involuntary psychiatric hospitalization and is requesting discharge from the inpatient psychiatric unit , I will discharge her today with psychiatric follow-up as arranged by counselor. Patient is also to follow-up with primary care. I counseled the patient and her regarding warning signs for any Patient brought back to psychiatric emergency room as part of the general safety plan. Results Blood Pressure 131 / 58 Vital Signs Date Time Temp Pulse Resp B/P Pulse Ox O2 Delivery O2 Flow Rate FiO2 08/17/16 06:04 98.0 67 16 131/58 97 Laboratory Results Test 08/13/16 11:39 Hemoglobin A1c 4.8 % (4.3-6.0) Triglycerides Level 89 MG/DL (42-150) Cholesterol Level 158 MG/DL (120-200) LDL Cholesterol 55 MG/DL (0-99) HDL Cholesterol 85.4 MG/DL (40.0-60.0) Summary of Procedures None done Imaging None done Pending results at discharge: No Medications # of Antipsychotic meds at D/C: 1 Approp Antipsych med options 1 - Minimum of three failed multiple trials of monotherapy. 2 - Documented plan to taper to monotherapy due to previous use of multiple meds OR cross-taper in progress at D/C. 3 - Documentation of augmentation of Clozapine. 4 - Justification other than those listed in allowable values 1-3, document here : Discharge Discharge Date: Aug 17, 2016 Discharge Diagnosis: (1) Bipolar disorder, in partial remission, most recent episode mixed Diagnosis: Principal ICD Code: F31.77 GAF on discharge is 55. Mental Status Exam at Disch Patient is casually dressed. She is well groomed. She is awake and alert and oriented 3. No evidence of delirium. No abnormal motor movements noted. No hand tremor, no dystonia, no dyskinesia. Steady gait and station. Speech is still mildly pressured but coherent and within normal limits for tone and volume. Language and fund of knowledge are average. Mood is as described above and affect is somewhat irritable. Thought process fairly linear. No loosening of associations. No evident delusions. Denies audiovisual hallucinations. Denies suicidal or homicidal ideation. Insight and judgment are fair at best. Pt Condition on Discharge: Guarded Discharge Disposition: Discharge Home Discharge Instructions Diet Instructions: As Tolerated, No Restrictions Activities you can perform: Weight Bearing as [place] Scheduled Appointment: as per counselor's notes New Medications: Olanzapine (Zyprexa) 20 Mg Tab 20 MG PO Mental Health Days 15 Ref 1 TAB Discharge Time > 30 minutes Discharge/Advance Care Plan Health Problems: (1) Bipolar disorder Goals to promote your health * To prevent worsening of your condition and complications * To maintain your health at the optimal level Directions to meet your goals Take your medications as prescribed Follow your dietary instruction Follow activity as directed Keep your appointments as scheduled Take your immunizations and boosters as scheduled If your symptoms worsen call your PCP, if no PCP go to Urgent Care Center or Emergency Room For 16/01 questions related to your inpatient stay or results of tests pending at discharge, please contact Dr. Vincenzo Medina at Smoking is Dangerous to Your Health. Avoid second hand smoking Problem Qualifiers (1) Bipolar disorder: Qualified Code: F31.64 - Bipolar disorder, current episode mixed, severe, with psychotic features Vincenzo Medina MD Aug 17, 2016 12:46
== END 2016-08-17 16:20 | disposition home or self-care (01) | DRG 885 ==
LOC: NEPJ 19:17 → NEDA 08-10 07:37 → H270 08-10 15:04
PROVIDERS: ADMIT Psychiatry & Neurology Psychiatry; ATTEND Psychiatry & Neurology Psychiatry
DX: F31.64 Bipolar disorder, current episode mixed, severe, with psychotic features (principal); F17.200 Nicotine dependence, unspecified, uncomplicated
CPT/HCPCS: 80053; 80061; 80307; 80320; 80329; 83036; 84439; 84443; 84703; 85025; 96372; G0480; J1200; J1630; J2060; Q0163